=== PATIENT | female | born 1980 | race African-American/Black ===

== ENCOUNTER 2020-09-20 15:08 | Emergency (ER) | payer SELFPAY ==
[~2020-09-20] VITALS: Ht 152.4 cm; Wt 64.4 kg
[2020-09-20 15:12] VITALS: BP 108/71
--- NOTE | 2020-09-20 15:23 | NUR ---
ED Nurse Note: Patient presents to ER due to toothache, right lower side x 3 days. Swollen face noted. Reports no fever, chills or N/V. Patient states she is able to open/close mouth without difficulty. Denies any swallowing problem. Patient sitting in chair, playing game on her cell phone. No facial grimacing or guarding noted.
--- NOTE | 2020-09-20 15:32 | Emergency Room Report ---
History of Present Illness General Chief Complaint: Toothache Source: Patient Present Illness HPI 40-year-old female presents to the emergency department complaining of 10 out of 10 severity pain, tenderness, swelling and failed dental fillings x4 days. Patient reports swelling was most prominent and occurred this morning. Patient states that she has been trying to get a hold of the dentist. She denies fevers or chills. She reports some tenderness in the right lower gumline as well. She denies trauma. She denies changes in her voice, earache, neck pain/stiffness. Patient denies having fluctuations of swelling associated with eating. She denies or suspicion for . Denies allergies to medications. Allergies: Coded Allergies: No Known Allergies (Unverified , 09/20/20) COVID-19 Screening Contact w/high risk pt: No Experienced COVID-19 symptoms?: No COVID-19 Testing performed LITIGATION COUNSEL: No Patient History Past Medical History: see triage record Past Surgical History: none Pertinent Family History: none Now: No Reviewed Nursing Documentation: PMH: Agreed; PSxH: Agreed Nursing Documentation-PMH Past Medical History: No Stated History Review of Systems All Other Systems: negative except mentioned in HPI Physical Exam Vital Signs Date Time Temp Pulse Resp B/P (MAP) Pulse Ox O2 Delivery O2 Flow Rate FiO2 09/20/20 15:12 97.9 90 16 108/71 (83) 99 Room Air Sp02 EP Interpretation: reviewed, normal General Appearance: no apparent distress, alert, GCS 15, non-toxic Head: normocephalic, atraumatic Eyes: bilateral eye normal inspection, bilateral eye PERRL ENT: hearing grossly normal, normal voice, other - dental infection of tooth #30 without localized palpable fluctuance or induration of the gum line. Secondary cellulitis of the right lower cheek with ST swelling, erythema and warmth. No palpable swelling or tenderness of the throat or under the tongue. Neck: full range of motion, no meningismus Respiratory: chest non-tender, lungs clear, normal breath sounds, no wheezing, speaking full sentences Cardiovascular #1: regular rate, rhythm, no edema Gastrointestinal: normal bowel sounds, non tender, soft Rectal: deferred Genitourinary: normal inspection Musculoskeletal: back normal, normal range of motion, gait/station normal, non- tender Neurologic: alert, motor strength/tone normal, oriented x3, sensory intact, responsive, speech normal Psychiatric: judgement/insight normal Skin: other - warmth, swelling and some erythmea to the right lower cheek at the jawline. Lymphatic: no adenopathy Medical Decision Making PA Attestation Dr. Cope is my supervising Physician whom patient management has been discussed with. Diagnostic Impression: Primary Impression: Dental infection Additional Impression: Nontraumatic broken or cracked tooth ER Course 40-year-old female presents to the emergency department complaining of 10 out of 10 severity pain, tenderness, swelling and failed dental fillings x4 days. Patient reports swelling was most prominent and occurred this morning. Patient states that she has been trying to get a hold of the dentist. She denies fevers or chills. She reports some tenderness in the right lower gumline as well. She denies trauma. She denies changes in her voice, earache, neck pain/stiffness. Patient denies having fluctuations of swelling associated with eating. She denies or suspicion for . Denies allergies to medications. Ddx considered but are not limited to cellulitis, dental abscess, orbital cellulitis, d/l tooth, dental infection, ludwigs, sialadenitis, trigeminal neuralgia Vital signs: are WNL, pt. is afebrile H&PE are most consistent with dental infection of tooth #30 without localized palpable fluctuance or induration of the gum line. Secondary cellulitis of the right lower cheek with ST swelling, erythema and warmth. No palpable swelling or tenderness of the throat or under the tongue. ORDERS: none required at this time, the diagnosis is clinical ED INTERVENTIONS: None required at this time. DISCHARGE: At this time pt. is stable for d/c to home. Will provide printed patient care instructions, and any necessary prescriptions. Care plan and follow up instructions have been discussed with the patient prior to discharge. Last Vital Signs Date Time Temp Pulse Resp B/P (MAP) Pulse Ox O2 Delivery O2 Flow Rate FiO2 09/20/20 15:12 97.9 90 16 108/71 (83) 99 Room Air Status: improved Disposition: HOME, SELF-CARE Condition: Stable Scripts Chlorhexidine Gluconate (CHLORHEXIDINE GLUCONATE) 473 Ml Mouthwash 15 ML MM BID, #473 ML Prov: Yohana Patton 09/20/20 Acetaminophen With Codeine (T#3) (TYLENOL #3 TAB*) Y Tab 1 TAB ORAL Q6H PRN for For Pain, #12 TAB Prov: Yohana Patton 09/20/20 Ibuprofen* (MOTRIN*) 600 Mg Tablet 600 MG ORAL THREE TIMES A DAY, #20 TAB Prov: Yohana Patton 09/20/20 Amoxicillin/Potassium Clav 875-125* (AUGMENTIN 875-125 TABLET*) 1 Each Tablet 1 TAB ORAL TWICE A DAY for 7 Days, #14 TAB Prov: Yohana Patton 09/20/20 Referrals: [facility] Patient Instructions: Dental Pain Additional Instructions: Take medications as directed. Do not drink alcohol, drive, or operate heavy machinery while taking Tylenol # 3 as this may cause drowsiness. Follow up with a Dentist in 3-5 days, even if your symptoms have resolved. --Please review list of Dental clinics, if you do not already have a Dentist Return sooner to ED if new symptoms occur, or current symptoms become worse. - Please note that this Emergency Department Report was dictated using [employer] teacher technology software, occasionally this can lead to erroneous entry secondary to interpretation by the dictation equipment. Yohana Patton Sep 20, 2020 15:31
[2020-09-20] MEDS ORDERED: ACETAMINOPHEN-1 EAC1 ORAL (15:34)
[2020-09-20] MEDS ORDERED: CHLORHEXIDINE473 ML MM (15:34)
[2020-09-20] MEDS ORDERED: AUGMENTIN 875-1 EAC1 ORAL (15:34)
[2020-09-20] MEDS ORDERED: IBUPROFEN600 M1 ORAL (15:34)
--- NOTE | 2020-09-20 15:50 | NUR ---
ER DISCHARGE NOTE: Patient is cleared to be discharged per ERMD. Patient awake, alert, oriented x 4. Regular, unlabored breathing noted. D/C instruction and prescription given. Patient verbalized understanding of it. ID band removed. Patient ambulated out with steady gait with all her belongings.
== END 2020-09-20 15:45 | disposition home or self-care (01) ==
LOC: EMR 15:40
DX: K04.7 Periapical abscess without sinus (principal); S02.5XXA Fracture of tooth (traumatic), initial encounter for closed fracture
CPT/HCPCS: 99282